=== PATIENT | male | born 1990 | race Caucasian/White ===

== ENCOUNTER 2016-07-01 18:26 | Emergency (ER) | payer MEDICAID ==
[~2016-07-01] VITALS: Ht 188 cm; Wt 88.5 kg
[~2016-07-01 18:26] MED LIST: CEPH-443 PO; MUPI22OI29 TOP
[2016-07-01 18:30] VITALS: Ht 188 cm; Wt 88.5 kg
[2016-07-01] MEDS ORDERED: SOD CHLORIDE 0.9% 1,000 ML IV STA (19:24)
[2016-07-01] MEDS ORDERED: ONDANSETRON 4 MG INJ IV STA ×3 (19:24→22:50)
[2016-07-01] MEDS ORDERED: morphine 4 MG/ML VIAL IV STA ×2 (19:24→21:42)
[2016-07-01] MEDS ORDERED: DICLOFENAC SODIUM 37.5 MG/ML VIAL IV STA (19:36)
[2016-07-01 19:48] LABS: BASOPHIL # 0.1 10^3/ul (0.0-0.1); BASOPHILS % 0.7 % (0.0-2.0); EOSINOPHILS % 0.1 % (0.0-7.0); HEMATOCRIT 48.3 % (42.0-52.0); HEMOGLOBIN 16.6 g/dl (14.0-18.0); LYMPHOCYTES # 1.3 10^3/ul (0.8-2.9); LYMPHOCYTES % 8.3 % (15.0-51.0); MEAN CORPUSCULAR HGB CONC 34.3 g/dl (32.0-37.0); MEAN CORPUSCULAR VOLUME 93.3 fl (82.0-101.0); MEAN PLATELET VOLUME 8.1 fl (7.4-10.4); MONOCYTE # 0.4 10^3/ul (0.3-0.9); MONOCYTES % 2.8 % (0.0-11.0); NEUTROPHIL # 13.5 10^3/ul (1.6-7.5); NEUTROPHILS % 88.1 % (39.0-77.0); PLATELET COUNT 302 10^3/UL (140-440); RED BLOOD COUNT 5.18 10^6/ul (4.70-6.10); RED CELL DISTRIBUTION WIDTH 12.1 % (11.5-14.5); UNCORRECTED WBC 15.3 10^3/ul (4.8-10.8); WHITE BLOOD COUNT 15.3 10^3/ul (4.8-10.8)
[2016-07-01 19:55] LABS: CONDITION 1
[2016-07-01 20:00] LABS: POTASSIUM 3.9 mmol/L (3.5-5.1)
[2016-07-01] MEDS ORDERED: HYDROmorphONE 1 MG/ML SYG IV STA ×2 (20:00→22:48)
[2016-07-01 20:02] LABS: CREATININE 0.99 mg/dl (0.61-1.24)
[2016-07-01 20:03] LABS: ALBUMIN/GLOBULIN RATIO 1.56; BILIRUBIN,INDIRECT 0.5 mg/dl (0-1.1); BILIRUBIN,TOTAL 0.5 mg/dl (0.2-1.3); CALCIUM 10.2 mg/dl (8.4-10.2); TOTAL PROTEIN 8.2 g/dl (6.1-8.1)
--- NOTE | 2016-07-01 20:07 | RADRPT ---
PROCEDURE: CT Abdomen and Pelvis without contrast. CLINICAL INDICATION: Abdominal pain TECHNIQUE: CT scan of the abdomen and pelvis was performed on a multidetector high-resolution CT s [place] without intravenous contrast. Coronal and sagittal reformatted images were obtained from the axial source images. Images were reviewed on a high-resolution PACS workstation. The total exam CTD I equals 9mGy and the total exam DLP equals 578mGy-cm. One or more of the following dose reduction t echniques were used: Automated exposure control, Adjustment of the mA and/or kV according to patient size, and/or use of iterative reconstruction technique. COMPARISON: None. FINDINGS: Evaluation of the solid organs is limited given the lack of intravenous contrast administration. The lung bases are clear. The liver, pancreas, spleen, and adrenals are grossly unremarkable. No focal pericholecystic inflammatory changes. Tandem 5 and 3 mm obstructing stones are identified at the left ureterovesicular junction. There is moderate left hydroureteral nephrosis. Multiple additional bilateral nonobstructing stones are see n. No bowel obstruction. Normal-caliber appendix. No significant retroperitoneal lymphadenopathy or evidence of pneumoperitoneum. IMPRESSION: Tandem 5 and 3 mm obstructing stones are identified at the left ureterovesicular junction. There is moderate left hydroureteronephrosis. Multiple additional bilateral nonobstructing stones are seen. RPTAT: AA .Franklin Orellana MD, MD Date Time Electronically viewed and signed by .Franklin Orellana MD, MD on 07/01/2016 20:07 .T/
--- NOTE | 2016-07-01 20:43 | ERD ---
ER Documentation Chief Complaint Date/Time DATE: 07/01/16 TIME: 20:39 Chief Complaint flank pain x 3 hrs HPI Patient is a 25-year-old male who presents to the ED with left flank pain 3 hours. He states that the pain came on suddenly and is gradually getting worse. He states that it radiates to the left side of his abdomen as well as into his left groin. He states that he has had this pain in the past, in fifth grade. He states that the pain is a 12 out of 10. He is unable to find a position that makes him comfortable. He has taken [place] which has not relieved his symptoms. He also complains of nonbilious nonbloody emesis. He denies chest pain, cough or shortness of breath. He denies any difficulty urinating or problems urinating. He denies headache, dizziness, weakness. ROS All systems reviewed and are negative except as per history of present illness. Medications Home Meds Active Scripts Hydrocodone/Acetaminophen ([place] 5-325 Tablet) 1 Each Tablet, 1 TAB PO Q6H Y for PAIN, #7 TAB Prov:GUI SOTO PA-C 07/02/16 Ondansetron Hcl* (Zofran*) 4 Mg Tablet, 4 MG PO Q6H for NAUSEA AND/OR VOMITING, #30 TAB Prov:GUI SOTO PA-C 07/02/16 Ciprofloxacin Hcl* (Ciprofloxacin Hcl*) 500 Mg Tablet, 500 MG PO BID for 3 Days , TAB Prov:GUI SOTO PA-C 07/02/16 Tamsulosin Hcl* (Flomax*) 0.4 Mg Cap.er.24h, 0.4 MG PO BID, #30 CAP Prov:GUI SOTO PA-C 07/02/16 Mupirocin (BACTROBAN 2% OINT) 1 Applic Oint, 1 APPLIC TOP BID, #1 TUB Prov:URSULA RESENDIZ PA-C 10/30/15 Cephalexin* (Keflex*) 500 Mg Capsule, 500 MG PO QID for 5 Days, CAP Prov:URSULA RESENDIZ PA-C 10/29/15 Allergies Allergies: Coded Allergies: No Known Allergy (Unverified , 10/30/15) PMhx/Soc Medical and Surgical Hx: pt denies Medical Hx, pt denies Surgical Hx History of Surgery: No Anesthesia Reaction: No Hx Neurological Disorder: No Hx Respiratory Disorders: No Hx Cardiac Disorders: No Hx Psychiatric Problems: No Hx Miscellaneous Medical Probl: Yes (gallstones) Hx Alcohol Use: Yes Hx Substance Use: No Hx Tobacco Use: Yes Smoking Status: Current every day smoker Physical Exam Vitals Vital Signs Date Time Temp Pulse Resp B/P Pulse Ox O2 Delivery O2 Flow Rate FiO2 07/02/16 00:55 98.9 63 18 142/96 99 Room Air 07/01/16 18:30 96.0 58 20 166/99 100 Physical Exam GENERAL: Well-developed, well-nourished male. Appears in distress. HEAD: Normocephalic, atraumatic. EYES: Pupils are equally reactive bilaterally. EOMs grossly intact. No conjunctival erythema. ENT: Moist mucous membranes. No uvula deviation. No kissing tonsils. No exudates. NECK: Supple. No lymphadenopathy or thyromegaly. No meningismus. negative kernig. negative brudinski. LUNG: Clear to auscultation bilaterally. No rhonchi, wheezing, rales or coarse breath sounds. HEART: Regular rate and rhythm. No murmurs, rubs or gallops. ABDOMEN: No scars, ecchymosis or rashes noted. Soft, and nondistended. Positive bowel sounds in all four quadrants. No rebound tenderness, no guarding. (-) McBurneys point tenderness. Left CVA tenderness. Tenderness to left abdomen. BACK: No midline tenderness. Extremities: Equal pulses bilaterally. No peripheral clubbing, cyanosis or edema. No unilateral leg swelling. NEUROLOGIC: Alert and oriented. Moving all four extremities. 5/5 strength in all extremities. Normal speech. Steady gait. SKIN: Normal color. Warm and dry. No rashes or lesions. Capillary refill < 2 seconds Result Diagram: 07/01/16192907/01/161929 Results 24 hrs Laboratory Tests Test 07/01/16 19:30 07/01/16 22:20 Alanine Aminotransferase (ALT/SGPT) 27IU/L Albumin 5.0g/dl Albumin/Globulin Ratio 1.56 Alkaline Phosphatase 81IU/L Anion Gap 22 Aspartate Amino Transf (AST/SGOT) 22IU/L Basophils # 0.110^3/ul Basophils % 0.7% Blood Urea Nitrogen 13mg/dl Calcium Level 10.2mg/dl Carbon Dioxide Level 28mmol/L Chloride Level 98mmol/L Creatinine 0.99mg/dl Direct Bilirubin 0.00mg/dl Eosinophils # 0.010^3/ul Eosinophils % 0.1% Globulin 3.20g/dl Glucose Level 118mg/dl Hematocrit 48.3% Hemoglobin 16.6g/dl Indirect Bilirubin 0.5mg/dl Lipase 62U/L Lymphocytes # 1.310^3/ul Lymphocytes % 8.3% Mean Corpuscular Hemoglobin 32.0pg Mean Corpuscular Hemoglobin Concent 34.3g/dl Mean Corpuscular Volume 93.3fl Mean Platelet Volume 8.1fl Monocytes # 0.410^3/ul Monocytes % 2.8% Neutrophils # 13.510^3/ul Neutrophils % 88.1% Nucleated Red Blood Cells # 0.010^3/ul Nucleated Red Blood Cells % 0.0/100WBC Platelet Count 14588^3/UL Potassium Level 3.9mmol/L Red Blood Count 5.1810^6/ul Red Cell Distribution Width 12.1% Sodium Level 144mmol/L Total Bilirubin 0.5mg/dl Total Protein 8.2g/dl White Blood Count 15.310^3/ul Urine Bacteria FEW Urine Bilirubin NEGATIVE Urine Clarity SLIGHTLY CLOUDY Urine Color YELLOW Urine Glucose NEGATIVE% Urine Hemoglobin 3+ Urine Ketones 3+ Urine Leukocyte Esterase TRACE Urine Microscopic RBC >50/HPF Urine Microscopic WBC 0-2/HPF Urine Mucus MANY Urine Nitrite NEGATIVE Urine Specific [place] 1.025 Urine Squamous Epithelial Cells FEW Urine Total Protein 2+ Urine Urobilinogen 1.0 E.U./dL Urine pH 6.5 Current Medications Medications (Trade) Dose Ordered Sig/Adam Route PRN Reason Start Time Stop Time Status Last Admin Dose Admin Sodium Chloride (NS) 1,000 ml @ 1,000 mls/hr Q1H STAT IV 07/01/16 19:24 07/01/16 20:23 DC 07/01/16 19:29 Morphine Sulfate (morphine) 4 mg ONCE STAT IV 07/01/16 19:24 07/01/16 19:26 DC 07/01/16 19:29 Ondansetron HCl (Zofran Inj) 4 mg ONCE STAT IV 07/01/16 19:24 07/01/16 19:26 DC 07/01/16 19:29 Diclofenac Sodium (Dyloject) 37.5 mg ONCE STAT IV 07/01/16 19:36 07/01/16 19:37 DC 07/01/16 19:39 Hydromorphone HCl (Dilaudid) 1 mg ONCE STAT IV 07/01/16 20:00 07/01/16 20:01 DC 07/01/16 20:03 Ondansetron HCl 4 mg 4 mg ONCE STAT IV 07/01/16 20:00 07/01/16 20:01 DC 07/01/16 20:03 Sodium Chloride (NS) 1,000 ml @ 1,000 mls/hr Q1H ONCE IV 07/01/16 21:30 07/01/16 22:29 DC 07/01/16 21:16 Morphine Sulfate (morphine) 4 mg ONCE STAT IV 07/01/16 21:42 07/01/16 21:44 DC 07/01/16 21:47 Lorazepam (Ativan) 1 mg ONCE ONCE IM 07/01/16 23:00 07/01/16 23:01 DC 07/01/16 22:58 Hydromorphone HCl (Dilaudid) 1 mg ONCE STAT IV 07/01/16 22:48 07/01/16 22:50 DC 07/01/16 22:58 Ondansetron HCl (Zofran Inj) 4 mg ONCE STAT IV 07/01/16 22:50 07/01/16 23:00 DC Hydromorphone HCl (Dilaudid) 2 mg ONCE STAT IV 07/01/16 22:50 07/01/16 23:48 DC Procedures/MDM ER COURSE: I kept the patient and/or family informed of laboratory and diagnostic imaging results throughout the emergency room course. EKG, MONITORS, & DIAGNOSTIC IMAGING: [place] [id number] Radiology Main Line: [phone] DIAGNOSTIC IMAGING REPORT Patient: SARAH GALE : 1990 Age: 25 Sex: M MR #: [id number] DOS: 07/01/16 194 Ordering MD: GUI SOTO PA-C Location: [facility] Room/Bed: PROCEDURE: CT Abdomen and Pelvis without contrast. CLINICAL INDICATION: Abdominal pain TECHNIQUE: CT scan of the abdomen and pelvis was performed on a multidetector high-resolution CT scanner without intravenous contrast. Coronal and sagittal reformatted images were obtained from the axial source images. Images were reviewed on a high-resolution PACS workstation. The total exam CTDI equals 9mGy and the total exam DLP equals 578mGy-cm. One or more of the following dose reduction techniques were used: Automated exposure control, Adjustment of the mA and/or kV according to patient size, and/or use of iterative reconstruction technique. COMPARISON: None. FINDINGS: Evaluation of the solid organs is limited given the lack of intravenous contrast administration. The lung bases are clear. The liver, pancreas, spleen, and adrenals are grossly unremarkable. No focal pericholecystic inflammatory changes. Tandem 5 and 3 mm obstructing stones are identified at the left ureterovesicular junction. There is moderate left hydroureteral nephrosis. Multiple additional bilateral nonobstructing stones are seen. No bowel obstruction. Normal-caliber appendix. No significant retroperitoneal lymphadenopathy or evidence of pneumoperitoneum. IMPRESSION: Tandem 5 and 3 mm obstructing stones are identified at the left ureterovesicular junction. There is moderate left hydroureteronephrosis. Multiple additional bilateral nonobstructing stones are seen. RPTAT: AA .Franklin Orellana MD, Date Time Electronically viewed and signed by .Franklin Orellana MD, MD on 07/01/2016 20:07 .T/ CC: GUI SOTO PA-C MEDICATIONS: IV fluids, morphine, daily check and Dilaudid given to patient. However he states minimal improvement in his symptoms. LAB INTERPRETATION: CBC showed evidence of a white count of 15 with a neutrophil shift of 88. No signs of severe anemia CMP showed no evidence of electrolyte abnormalities, severe acidosis, alkalosis , renal failure, or liver disease. Lipase showed no evidence of acute pancreatitis. UA showed 3+ ketones, trace leukocytes and 3+ hemoglobin. MEDICAL DECISION MAKING: This is a 25-year-old male who presents with left flank pain. Vital signs were reviewed. Patient is afebrile. Patient is not hypoxic. Patient is ill appearing. His CT scan shows tandem 5 and 3 mm obstructing stones in the left ureteral vesicular junction with moderate left hydroureteronephrosis. He has multiple additional bilateral nonobstructing stones.I have spoken with Dr. Martel who has reviewed his imaging studies and labwork pending urinalysis. After urinalysis results, Dr. Wan was consulted. Patient's pain was under control and was sent home with antibiotics and pain medication. Patient will be not be admitted as there is low suspicion for infected stone or a large enough obstructive stone. Patient's pain control is managed and he can be treated outpatiently. Low suspicion for ACS, AAA, perforated ulcer, bowel obstruction, cholecystitis, choledocholithiasis, cholangitis, pancreatitis, hepatic abscess, appendicitis, diverticulitis, nephrolithiasis, septic stone, obstructed stone. Low suspicion for cauda equine syndrome, spinal epidural hematoma, spinal epidural abscess, osteomyelitis, fracture, aortic dissection, AAA, pyelonephritis, nephrolithiasis, septic stone, obstructed stone. She does not need to be admitted at this time. DISCHARGE: At this time, patient is stable for discharge and outpatient management with no new complaints during the ER course. Patient's pain is under control and is ready for outpatient therapy. Patient was sent home with Magdiel Fritz Cipro, Flomax. Patient will be discharged home with instructions to recheck for new or worsening symptoms such as fever, nausea, weakness, LOC and to follow up with primary care in the next 1-2 days. Patient was advised to return to the ER for any new or worsening symptoms. Plan was discussed and patient and/or family understands and agrees. Home instructions were given. Departure Diagnosis: Primary Impression: Nephrolithiasis Condition: GUI Freitas PA-C Jul 01, 2016 20:42
[2016-07-01] MEDS ORDERED: SOD CHLORIDE 0.9% 1,000 ML IV ONE (21:30)
[2016-07-01] MEDS ORDERED: HYDROmorphONE 2 MG/ML SYG IV STA (22:50)
[2016-07-01 22:55] LABS: ADD UMIC YES; URINE BLOOD (Dip) 3+ (NEGATIVE); URINE COLOR YELLOW (YELLOW); URINE GLUCOSE (Dip) NEGATIVE (NEGATIVE); URINE KETONES (Dip) 3+ (NEGATIVE); URINE LEUKOCYTE ESTERASE (Dip) TRACE (NEGATIVE); URINE NITRITE (Dip) NEGATIVE (NEGATIVE); URINE TOTAL PROTEIN (Dip) 2+ (NEGATIVE); URINE UROBILINOGEN (Dip) 1.0 E.U./dL (0.1-1.0)
[2016-07-01] MEDS ORDERED: LORAZEPAM 2 MG INJ IM ONE (23:00)
[2016-07-01 23:18] LABS: URINE BILIRUBIN (Dip) NEGATIVE (NEGATIVE)
[2016-07-01 23:28] LABS: BACTERIA,URINE FEW; MUCUS,URINE MANY; SQUAMOUS EPITHELIAL CELL,UR FEW; URINE RBCS >50 /HPF ([, 0])
[2016-07-02] MEDS ORDERED: HYDR-906 PO (00:27)
[2016-07-02] MEDS ORDERED: TAMS-14 PO (00:27)
[2016-07-02] MEDS ORDERED: ONDA4TAB8 PO (00:27)
[2016-07-02] MEDS ORDERED: CIPR500T4 PO (00:27)
[2016-07-02 00:55] VITALS: BP 142/96; PULSE 63; RESP 18; TEMP 98.9
== END 2016-07-02 00:56 | disposition home or self-care (01) ==
LOC: FTE 18:26
DX: N20.0 Calculus of kidney (principal); R11.10 Vomiting, unspecified; F17.210 Nicotine dependence, cigarettes, uncomplicated
CPT/HCPCS: 36415; 74176; 80053; 81001; 83690; 85025; 96372; 96374; 96375; 96376; J1170; J2060; J2270; J2405; J7030; Z7502; Z7610; 81003